=== PATIENT | female | born 1960 | race Caucasian/White ===

== ENCOUNTER → 2023-06-27 10:33 | Outpatient (REF) | payer BC, SELFPAY | LOC: ANHLAB 10:33 | PROVIDERS: PCP Internal Medicine; Visit Provider Plastic Surgery | DX: L72.3 Sebaceous cyst (principal) | CPT/HCPCS: 88305 ==

== ENCOUNTER → 2023-10-03 12:52 | Outpatient (CLI) | payer BC, SELFPAY ==
--- NOTE | ~2023-10-03 | CT_ITS ---
EXAMINATION: CT ankle RT wo con DATE: 10/03/2023 13:13 INDICATION: Closed nondisplaced avulsion fracture of tuberosity of right calcaneus. TECHNIQUE: Computed tomography (CT) of the right ankle was performed without intravenous contrast. Au tomated exposure control and iterative reconstruction technique were employed. The dose-length produc t was 254.95 mGy-cm. COMPARISON: None FINDINGS: Bone alignment is normal. There is a chip of bone lateral to the peroneal tubercle of calca neus between the peroneus longus and peroneus brevis tendons. 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 There is an enthesophyte at posterior aspect of calcaneal tuberosit y. IMPRESSION: 1. Chip of bone lateral to the peroneal tubercle of calcaneus, which may be a fracture or a chronic f inding. Reviewed, dictated and finalized at location E. [facility] IMPRESSION: 1. Chip of bone lateral to the peroneal tubercle of calcaneus, which may be a f racture or a chronic finding.
== END ==
PROVIDERS: PCP Family Medicine Sports Medicine; Visit Provider Family Medicine Sports Medicine
DX: S92.034D Nondisplaced avulsion fracture of tuberosity of right calcaneus, subsequent encounter for fracture with routine healing (principal); S93.491D Sprain of other ligament of right ankle, subsequent encounter; X58.XXXD Exposure to other specified factors, subsequent encounter
CPT/HCPCS: 73700